=== PATIENT | female | born 1985 | race Caucasian/White ===

== ENCOUNTER 2018-03-15 15:47 | Emergency (ER) | payer SELFPAY ==
[2018-03-15] MEDS ORDERED: Ondansetron 4 MG/2 ML SDV IVPUSH ONE (16:10)
[2018-03-15] MEDS ORDERED: Sodium Chloride 0.9% 10 ML Syringe FLUSH PRN (16:10)
[2018-03-15] MEDS ORDERED: HYDROmorphone 0.5 MG/0.5 ML SYRINGE IVPUSH ONE (16:11)
[2018-03-15] MEDS ORDERED: Ketorolac 30 MG/ML SDV IVPUSH ONE (16:11)
[2018-03-15] MEDS ORDERED: Sodium Chloride 0.9% 1,000 ML IV SCH (16:15)
--- NOTE | 2018-03-15 18:51 | EDM.PDOC ---
ED HPI GENERAL MEDICAL PROBLEM - General Chief Complaint: Flank Pain Stated Complaint: FLANK PAIN Time Seen by Provider: 03/15/18 15:55 Source of Information: Reports: Patient History Limitations: Reports: No Limitations - History of Present Illness INITIAL COMMENTS - FREE TEXT/NARRATIVE: The patient presents with right low back and flank pain. She has a history of kidney stones but she says this feels a little different. She has some darker urine but no frequency or dysuria. She has no fever or chills. She did not hurt her back in any way. She has no fever, chills, cough, chest pain, abdominal pain, nausea or vomiting. This has been going on for a few days. She has no pain that radiates down her legs. Onset: Gradual Duration: Day(s): Location: Reports: Back (Right lower) Quality: Reports: Sharp Severity: Moderate Improves with: Reports: None Worsens with: Reports: None Associated Symptoms: Denies: Chest Pain, Fever/Chills, Headaches, Nausea/ Vomiting, Shortness of Breath Right Flank Pain Score (Numeric/FACES): 7 - Related Data Allergies Allergy/AdvReac Type Severity Reaction Status Date / Time No Known Allergies Allergy Verified 03/15/18 15:55 Home Meds: Home Meds Cyclobenzaprine [Flexeril] 10 mg PO TID PRN #20 tab 03/15/18 [Rx] Hydrocodone/Acetaminophen [Hydrocodon-Acetaminophen 5-325] 1 - 2 each PO Q6HR PRN #20 tablet 03/15/18 [Rx] Past Medical History Genitourinary History: Reports: Renal Calculus, UTI, Recurrent Neurological History: Reports: Migraines - Past Surgical History Female Surgical History: Reports: Tubal Ligation Social & Family History - Tobacco Use Smoking Status *Q: Never Smoker - Caffeine Use Caffeine Use: Reports: Tea - Recreational Drug Use Recreational Drug Use: No ED ROS GENERAL - Review of Systems Review Of Systems: See Below Constitutional: Reports: No Symptoms HEENT: Reports: No Symptoms Respiratory: Reports: No Symptoms Cardiovascular: Reports: No Symptoms Endocrine: Reports: No Symptoms GI/Abdominal: Reports: No Symptoms : Reports: No Symptoms Musculoskeletal: Reports: Back Pain (Right lower ) ED EXAM,LOWER BACK PAIN/INJURY - Physical Exam Exam: See Below Exam Limited By: No Limitations General Appearance: Alert, No Apparent Distress Ears: Normal External Exam Nose: Normal Inspection Head: Atraumatic, Normocephalic Neck: Normal Inspection Respiratory/Chest: No Respiratory Distress, Lungs Clear, Normal Breath Sounds Cardiovascular: Regular Rate, Rhythm, No Edema, No Murmur GI/Abdominal: Soft, Non-Tender, No Organomegaly, No Mass Back Exam: Other (Mild pain upon palpatoin to the right lower back) Extremities: Normal Inspection Neurological: Alert, No Motor/Sensory Deficits, Oriented x 3 Course - Vital Signs Last Recorded V/S: Last Vital Signs Temp 98.2 F 03/15/18 15:56 Pulse 87 03/15/18 15:56 Resp 20 03/15/18 15:56 BP 130/73 03/15/18 15:56 Pulse Ox 99 03/15/18 15:56 - Orders/Labs/Meds Orders: Active Orders 24 hr Category Date Time Status Peripheral IV Care [RC] . DIRECTED Care 03/15/18 16:11 Active Abdomen Pelvis wo Cont [CT] Stat Exams 03/15/18 16:10 Taken CULTURE URINE [RM] Stat Lab 03/15/18 18:39 Ordered Sodium Chloride 0.9% [Normal Saline] 1,000 ml Med 03/15/18 16:15 Active IV ASDIRECTED Sodium Chloride 0.9% [Saline Flush] Med 03/15/18 16:10 Active 10 ml FLUSH ASDIRECTED PRN ED Antiemetic Medication Reflex [OM.PC] Stat Oth 03/15/18 16:10 Ordered Peripheral IV Insertion Adult [OM.PC] Stat Oth 03/15/18 16:10 Ordered Medication Orders Sodium Chloride (Normal Saline) 1,000 mls @ 125 mls/hr IV ASDIRECTED ANNALISE Last Admin: 03/15/18 16:19 Dose: 125 mls/hr Sodium Chloride (Saline Flush) 10 ml FLUSH ASDIRECTED PRN PRN Reason: Keep Vein Open Last Admin: 03/15/18 16:21 Dose: 10 ml Labs: Laboratory Tests 03/15/18 03/15/18 03/15/18 Range/Units 16:00 16:17 16:17 WBC 10.52 H (3.98-10.04) K/mm3 RBC 4.54 (3.98-5.22) M/mm3 Hgb 11.8 (11.2-15.7) gm/L Hct 35.4 (34.1-44.9) % MCV 78.0 L (79.4-94.8) fl MCH 26.0 (25.6-32.2) pg MCHC 33.3 (32.2-35.5) g/dl RDW Std Deviation 38.1 (36.4-46.3) fL Plt Count 302 (182-369) K/mm3 MPV 9.6 (9.4-12.3) fl Neut % (Auto) 63.0 (34.0-71.1) % Lymph % (Auto) 27.4 (19.3-51.7) % [place] % (Auto) 6.7 (4.7-12.5) % Eos % (Auto) 2.1 (0.7-5.8) Baso % (Auto) 0.2 (0.1-1.2) % Neut # (Auto) 6.64 H (1.56-6.13) K/mm3 Lymph # (Auto) 2.88 (1.18-3.74) K/mm3 [place] # (Auto) 0.70 H (0.24-0.36) K/mm3 Eos # (Auto) 0.22 (0.04-0.36) K/mm3 Baso # (Auto) 0.02 (0.01-0.08) K/mm3 Sodium 139 (136-145) mEq/L Potassium 3.9 (3.5-5.1) mEq/L Chloride 103 (98-107) mEq/L Carbon Dioxide 27 (21-32) mEq/L Anion Gap 12.9 (5-15) BUN 10 (7-18) mg/dL Creatinine 0.7 (0.55-1.02) mg/dL Est Cr Clr Drug Dosing 102.86 mL/min Estimated GFR (MDRD) > 60 (>60) mL/min BUN/Creatinine Ratio 14.3 (14-18) Glucose 81 (74-106) mg/dL Calcium 8.8 (8.5-10.1) mg/dL Total Bilirubin 0.5 (0.2-1.0) mg/dL AST 20 (15-37) U/L ALT 27 (14-59) U/L Alkaline Phosphatase 68 (46-116) U/L Total Protein 7.5 (6.4-8.2) g/dl Albumin 3.7 (3.4-5.0) g/dl Globulin 3.8 gm/dL Albumin/Globulin Ratio 1.0 (1-2) Lipase 149 (73-393) U/L HCG, Qual (NEGATIVE) Urine Color Yellow (Yellow) Urine Appearance Clear (Clear) Urine pH 6.0 (5.0-8.0) Ur Specific Marshall 1.020 (1.005-1.030) Urine Protein Negative (Negative) Urine Glucose (UA) Negative (Negative) Urine Ketones Negative (Negative) Urine Occult Blood Negative (Negative) Urine Nitrite Negative (Negative) Urine Bilirubin Negative (Negative) Urine Urobilinogen 0.2 (0.2-1.0) Ur Leukocyte Esterase Trace H (Negative) Urine RBC 0-5 (0-5) /hpf Urine WBC 0-5 (0-5) /hpf Ur Epithelial Cells 0-5 (0-5) /hpf Urine Bacteria Moderate H (FEW) /hpf Urine Mucus Not seen (FEW) /hpf 03/15/18 Range/Units 16:17 WBC (3.98-10.04) K/mm3 RBC (3.98-5.22) M/mm3 Hgb (11.2-15.7) gm/L Hct (34.1-44.9) % MCV (79.4-94.8) fl MCH (25.6-32.2) pg MCHC (32.2-35.5) g/dl RDW Std Deviation (36.4-46.3) fL Plt Count (182-369) K/mm3 MPV (9.4-12.3) fl Neut % (Auto) (34.0-71.1) % Lymph % (Auto) (19.3-51.7) % [place] % (Auto) (4.7-12.5) % Eos % (Auto) (0.7-5.8) Baso % (Auto) (0.1-1.2) % Neut # (Auto) (1.56-6.13) K/mm3 Lymph # (Auto) (1.18-3.74) K/mm3 [place] # (Auto) (0.24-0.36) K/mm3 Eos # (Auto) (0.04-0.36) K/mm3 Baso # (Auto) (0.01-0.08) K/mm3 Sodium (136-145) mEq/L Potassium (3.5-5.1) mEq/L Chloride (98-107) mEq/L Carbon Dioxide (21-32) mEq/L Anion Gap (5-15) BUN (7-18) mg/dL Creatinine (0.55-1.02) mg/dL Est Cr Clr Drug Dosing mL/min Estimated GFR (MDRD) (>60) mL/min BUN/Creatinine Ratio (14-18) Glucose (74-106) mg/dL Calcium (8.5-10.1) mg/dL Total Bilirubin (0.2-1.0) mg/dL AST (15-37) U/L ALT (14-59) U/L Alkaline Phosphatase (46-116) U/L Total Protein (6.4-8.2) g/dl Albumin (3.4-5.0) g/dl Globulin gm/dL Albumin/Globulin Ratio (1-2) Lipase (73-393) U/L HCG, Qual Negative (NEGATIVE) Urine Color (Yellow) Urine Appearance (Clear) Urine pH (5.0-8.0) Ur Specific Marshall (1.005-1.030) Urine Protein (Negative) Urine Glucose (UA) (Negative) Urine Ketones (Negative) Urine Occult Blood (Negative) Urine Nitrite (Negative) Urine Bilirubin (Negative) Urine Urobilinogen (0.2-1.0) Ur Leukocyte Esterase (Negative) Urine RBC (0-5) /hpf Urine WBC (0-5) /hpf Ur Epithelial Cells (0-5) /hpf Urine Bacteria (FEW) /hpf Urine Mucus (FEW) /hpf Meds: Medications Generic Name Dose Route Start Last Admin Trade Name Freq PRN Reason Stop Dose Admin Sodium Chloride 1,000 mls @ 125 mls/hr 03/15/18 16:15 03/15/18 16:19 Normal Saline IV 125 mls/hr ASDIRECTED ANNALISE Administration Sodium Chloride 10 ml 03/15/18 16:10 03/15/18 16:21 Saline Flush FLUSH 10 ml ASDIRECTED PRN Administration Keep Vein Open Discontinued Medications Generic Name Dose Route Start Last Admin Trade Name Freq PRN Reason Stop Dose Admin Hydromorphone HCl 0.5 mg 03/15/18 16:11 03/15/18 16:21 Dilaudid IVPUSH 03/15/18 16:12 0.5 mg ONETIME ONE Administration Ketorolac Tromethamine 30 mg 03/15/18 16:11 03/15/18 16:20 Toradol IVPUSH 03/15/18 16:12 30 mg ONETIME ONE Administration Ondansetron HCl 4 mg 03/15/18 16:10 03/15/18 16:19 Zofran IVPUSH 03/15/18 16:11 4 mg ONETIME ONE Administration - Re-Assessments/Exams Free Text/Narrative Re-Assessment/Exam: 03/15/18 18:44 I ordered an IV NS, labs, UA, CT of her abdomen and pelvis, zofran 4mg IV, dilaudid 0.5mg IV and toradol 30mg IV. Her WBC was near normal at 10.52. Her CMP looks good. Her UA had slight leukocyte esterase and there was some bacteria but no WBCs. I will do a culture. Her CT shows mile hepatosplenomegaly but no kidney stones. I am not sure why she has enlarged liver and spleen. She has not been ill recently. I will have her follow up with one of our providers for follow up. I feel this is muskuloskeletal pain. I will get her on some flexeril and hydrocodone. I will discharge her home. Departure - Departure Time of Disposition: 18:55 Disposition: Home, Self-Care 01 Condition: Good Clinical Impression: Hepatosplenomegaly Right low back pain Qualifiers: Chronicity: acute Sciatica presence: without sciatica Qualified Code(s): M54.5 - Low back pain - Discharge Information *PRESCRIPTION DRUG MONITORING PROGRAM REVIEWED*: No *COPY OF PRESCRIPTION DRUG MONITORING REPORT IN PATIENT BHARATHI: No Prescriptions: Hydrocodone/Acetaminophen [Hydrocodon-Acetaminophen 5-325] 1 - 2 each PO Q6HR PRN #20 tablet PRN Reason: Pain Cyclobenzaprine [Flexeril] 10 mg PO TID PRN #20 tab PRN Reason: Pain Referrals: PCP,None [Primary Care Provider] - Natali Corbett PA-C [Physician Corporate Representative] - 1 Week Forms: ED Department Discharge, ED Return to Work/School Form Additional Instructions: Take motrin or aleve for pain. You may also take flexeril or hydrocodone for pain. Drink plenty of fluids. Your liver and spleen were mildly enlarged please follow up with Natali Corbett to have that reevaluated. Please return if you are worse. - My Orders Last 24 Hours: My Active Orders 03/15/18 16:10 Abdomen Pelvis wo Cont [CT] Stat Sodium Chloride 0.9% [Saline Flush] 10 ml FLUSH ASDIRECTED PRN ED Antiemetic Medication Reflex [OM.PC] Stat Peripheral IV Insertion Adult [OM.PC] Stat 03/15/18 16:11 Peripheral IV Care [RC] . DIRECTED 03/15/18 16:15 Sodium Chloride 0.9% [Normal Saline] 1,000 ml IV ASDIRECTED 03/15/18 18:39 CULTURE URINE [RM] Stat - Assessment/Plan Last 24 Hours: My Active Orders 03/15/18 16:10 Abdomen Pelvis wo Cont [CT] Stat Sodium Chloride 0.9% [Saline Flush] 10 ml FLUSH ASDIRECTED PRN ED Antiemetic Medication Reflex [OM.PC] Stat Peripheral IV Insertion Adult [OM.PC] Stat 03/15/18 16:11 Peripheral IV Care [RC] . DIRECTED 03/15/18 16:15 Sodium Chloride 0.9% [Normal Saline] 1,000 ml IV ASDIRECTED 03/15/18 18:39 CULTURE URINE [RM] Stat
--- NOTE | 2018-03-17 07:13 | CT ---
CT abdomen and pelvis Technique: Multiple axial sections were obtained from above the dome of the diaphragm inferiorly through the pubic symphysis. Intravenous and oral contrast was not utilized. Study has been performed as a ureteral stone protocol. Findings: No abnormal calcifications are seen within the kidneys. No ureteral dilatation or ureteral stone is seen. No bladder calculi are identified. Appendix is not visualized with certainty. No bowel dilatation is seen. Spleen measures at the upper limits of normal at 13.7 cm. Visualized lung bases are clear. Noncontrast appearance of the liver appears within normal limits. Adrenal glands show no nodule. Pancreas is within normal limits. Gallbladder contains no calcified gallstones. Aorta shows no aneurysmal dilatation. No retroperitoneal adenopathy or mesenteric abnormalities are seen. Bone window settings were reviewed showing slight scattered degenerative change. Small fat-containing umbilical hernia is noted. Impression: 1. No renal calculi, ureteral dilatation or ureteral stone is seen. 2. Spleen size at the upper limits of normal at 13.7 cm. 3. Other incidental findings as noted above. Nothing acute is appreciated. Diagnostic code #2 I agree with preliminary report from [facility], finalized on 03/15/18, 6:54 PM Central Time
== END 2018-03-15 19:06 | disposition home or self-care (01) ==
LOC: JD.ED 15:47
DX: M54.5 Low back pain (principal); R16.2 Hepatomegaly with splenomegaly, not elsewhere classified; K04.7 Periapical abscess without sinus
CPT/HCPCS: 36415; 74176; 80053; 81001; 83690; 84703; 85025; 87086; 87088; 87186; 96361; 96374; 96375; 99284; J1170; J1885; J2405; J7040; J7050

== ENCOUNTER 2019-06-09 09:20 | Emergency (ER) | payer BC, OTHER ==
[2019-06-09] MEDS ORDERED: Ondansetron 4 MG Tab.DIS PO ONE (11:04)
[2019-06-09] MEDS ORDERED: Acetaminophen/oxyCODONE 325-5 MG Tab PO ONE (11:04)
--- NOTE | 2019-06-09 11:33 | EDM.PDOC ---
ED HPI GENERAL MEDICAL PROBLEM - General Chief Complaint: Head Injury Stated Complaint: FELL ON ICE/HEAD AND BODY INJURIES Time Seen by Provider: 06/09/19 10:51 Source of Information: Reports: Patient, Family History Limitations: Reports: No Limitations - History of Present Illness INITIAL COMMENTS - FREE TEXT/NARRATIVE: The patient presents with a headache, neck pain, low back pain, tailbone pain and right hip pain after falling on ice yesterday. She was at work and moving snow. She did not see the ice under the snow and she slipped and fell. She hit her head and landed on her back. She does not think she had any LOC. It did take her a few minutes to get up. She has felt like she is "drunk." She also has nausea and a bad headache. She has midline cervical spine pain. She has no numbness or weakness. She can walk but she is sore in the right hip and tailbone area. She has no chest pain, shortness of breath, abdominal pain or vomiting. Onset: Sudden Duration: Day(s): (Yesterday) Location: Reports: Head, Neck, Back (lower), Lower Extremity, Right (hip) Quality: Reports: Sharp Severity: Severe Improves with: Reports: Immobilization Worsens with: Reports: Movement Context: Reports: Trauma (Slipped and fell on the ice) Associated Symptoms: Reports: Headaches, Nausea/Vomiting. Denies: Chest Pain, Cough, Fever/Chills, Shortness of Breath Treatments COTTON PICKING MACHINE OPERATOR: Reports: Other (see below) Other Treatments COTTON PICKING MACHINE OPERATOR: tylenol yesterday Generalized Pain Score (Numeric/FACES): 8 - Related Data Allergies Allergy/AdvReac Type Severity Reaction Status Date / Time latex Allergy Other Verified 06/09/19 09:37 Home Meds: Home Meds Ondansetron [Zofran ODT] 4 mg PO Q6H PRN #20 tab.dis 06/09/19 [Rx] oxyCODONE HCl/Acetaminophen [Percocet 5-325 mg Tablet] 1 - 2 each PO Q6HR PRN # 15 tablet 06/09/19 [Rx] Past Medical History HEENT History: Reports: Impaired Vision Respiratory History: Reports: Asthma Genitourinary History: Reports: Renal Calculus, UTI, Recurrent PERSONNEL ASSOCIATE History: Reports: Neurological History: Reports: Concussion, Migraines Psychiatric History: Reports: Anxiety Hematologic History: Reports: Anemia - Past Surgical History Female Surgical History: Reports: Tubal Ligation, Other (See Below) Other Female Surgeries/Procedures: uterine ablation Endocrine Surgical History: Reports: Other (See Below) Other Endocrine Surgeries/Procedures: benign hemangioma Social & Family History - Family History Family Medical History: Noncontributory - Tobacco Use Smoking Status *Q: Never Smoker - Caffeine Use Caffeine Use: Reports: Tea - Recreational Drug Use Recreational Drug Use: No ED ROS GENERAL - Review of Systems Review Of Systems: See Below Constitutional: Reports: No Symptoms HEENT: Reports: No Symptoms Respiratory: Reports: No Symptoms Cardiovascular: Reports: No Symptoms Endocrine: Reports: No Symptoms GI/Abdominal: Reports: Nausea. Denies: Abdominal Pain, Vomiting : Reports: No Symptoms Musculoskeletal: Reports: Back Pain (lower), Other (Right hip pain) Neurological: Reports: Headache. Denies: Numbness, Weakness ED EXAM, HEAD INJURY - Physical Exam Exam: See Below Exam Limited By: No Limitations General Appearance: Alert, No Apparent Distress Head: Other (Pain upon palpation to the occipital region) Eyes: Bilateral Eye: EOMI, PERRL Ears: Normal External Exam Nose: Normal Inspection Neck: Tender Midline Respiratory: No Respiratory Distress, Lungs Clear, Normal Breath Sounds Cardiovascular: Regular Rate, Rhythm, No Edema, No Murmur GI/Abdominal Exam: Soft, Non-Tender, No Organomegaly, No Mass Back Exam: Other (Pain upon palpation to the lumbar spine) Extremities: Other (Pain upon palpation to the right hip with good sensation and pulses distally) Neurologic: No Motor/Sensory Deficits, Alert, Normal Mood/Affect, Oriented x 3 Course - Vital Signs Last Recorded V/S: Last Vital Signs Temp 96.4 F 06/09/19 09:38 Pulse 90 06/09/19 09:38 Resp 16 06/09/19 09:38 BP 129/80 06/09/19 09:38 Pulse Ox 99 06/09/19 09:38 - Orders/Labs/Meds Orders: Active Orders 24 hr Category Date Time Status Cervical Spine wo Cont [CT] Stat Exams 06/09/19 11:05 Taken Head wo Cont [CT] Stat Exams 06/09/19 11:04 Taken Hip Min 2V or 3V w Pelvis Rt [CR] Stat Exams 06/09/19 11:05 Taken Lumbar Spine 2 or 3V [CR] Stat Exams 06/09/19 11:05 Taken Meds: Medications Discontinued Medications Generic Name Dose Route Start Last Admin Trade Name Christina PRN Reason Stop Dose Admin Ondansetron HCl 4 mg 06/09/19 11:04 06/09/19 11:37 Zofran Odt PO 06/09/19 11:05 4 mg ONETIME ONE Administration Oxycodone/Acetaminophen 2 tab 06/09/19 11:04 06/09/19 11:36 Percocet 325-5 Mg PO 06/09/19 11:05 2 tab ONETIME ONE Administration - Re-Assessments/Exams Free Text/Narrative Re-Assessment/Exam: 06/09/19 11:34 I ordered zofran 4mg PO, percocet 5mg/325mg X 2, CT of her head, cervical spine , and x-ray of her lumbar spine and right hip with pelvis. 06/09/19 12:[address] of her head and cervical spine show no acute injuries. The x-ray of her lumbar spine, hip and pelvis are all negative. I will discharge her home. Departure - Departure Time of Disposition: 12:30 Disposition: Home, Self-Care 01 Condition: Good Clinical Impression: Fall Qualifiers: Encounter type: initial encounter Qualified Code(s): W19.XXXA - Unspecified fall, initial encounter Concussion Qualifiers: Encounter type: initial encounter Loss of consciousness presence/duration: without LOC Qualified Code(s): S06.0X0A - Concussion without loss of consciousness, initial encounter Head injury Qualifiers: Encounter type: initial encounter Qualified Code(s): S09.90XA - Unspecified injury of head, initial encounter Cervical strain Qualifiers: Encounter type: initial encounter Qualified Code(s): S16.1XXA - Strain of muscle, fascia and tendon at neck level, initial encounter Lumbar strain Qualifiers: Encounter type: initial encounter Qualified Code(s): S39.012A - Strain of muscle, fascia and tendon of lower back, initial encounter Coccyx contusion Qualifiers: Encounter type: initial encounter Qualified Code(s): S30.0XXA - Contusion of lower back and pelvis, initial encounter Contusion of right hip Qualifiers: Encounter type: initial encounter Qualified Code(s): S70.01XA - Contusion of right hip, initial encounter - Discharge Information *PRESCRIPTION DRUG MONITORING PROGRAM REVIEWED*: No *COPY OF PRESCRIPTION DRUG MONITORING REPORT IN PATIENT BHARATHI: No Prescriptions: oxyCODONE HCl/Acetaminophen [Percocet 5-325 mg Tablet] 1 - 2 each PO Q6HR PRN # 15 tablet PRN Reason: Pain Ondansetron [Zofran ODT] 4 mg PO Q6H PRN #20 tab.dis PRN Reason: Nausea\\vomiting Referrals: PCP,None [Primary Care Provider] - Maria Luisa Pineda PA-C [Physician Payroll Specialist] - 1 Week Forms: ED Department Discharge, ED Return to Work/School Form Additional Instructions: Ice the areas that hurt for 15 minutes 3 times per day for 2 days. Take tylenol or motrin for pain. If that does not help, try the percocet. Please return if you are worse. Take the zofran every 6 hours as needed for nausea and vomiting. Sepsis Event Note - Evaluation Sepsis Screening Result: No Definite Risk - Focused Exam Vital Signs: Vital Signs Temp Pulse Resp BP Pulse Ox 06/09/19 09:38 96.4 F 90 16 129/80 99 Date Exam was Performed: 06/09/19 Time Exam was Performed: 12:25 - My Orders Last 24 Hours: My Active Orders 06/09/19 11:04 Head wo Cont [CT] Stat 06/09/19 11:05 Cervical Spine wo Cont [CT] Stat Hip Min 2V or 3V w Pelvis Rt [CR] Stat Lumbar Spine 2 or 3V [CR] Stat - Assessment/Plan Last 24 Hours: My Active Orders 06/09/19 11:04 Head wo Cont [CT] Stat 06/09/19 11:05 Cervical Spine wo Cont [CT] Stat Hip Min 2V or 3V w Pelvis Rt [CR] Stat Lumbar Spine 2 or 3V [CR] Stat
--- NOTE | 2019-06-09 12:26 | CT ---
CT cervical spine Technique: Multiple axial sections were obtained from above C1 inferiorly to the top of T2. Reconstructed sagittal and coronal images were reviewed. Comparison: Previous CT cervical spine study of 06/06/18. Findings: Mild disc space narrowing is noted at C5-C6 with anterior osteophytes and mild posterior osteophytes. Other disc spaces and vertebral body heights are maintained. No bony central or bony neural foraminal stenosis is seen. No fracture is appreciated. No abnormal subluxation is seen. Impression: 1. Slight degenerative change at C5-C6. 2. Nothing acute is appreciated on CT study of the cervical spine. 3. No significant change is seen from prior cervical spine study. Diagnostic code #2 This report was dictated in [place] Standard Time
--- NOTE | 2019-06-09 12:40 | CT ---
Head CT Technique: Multiple axial sections were obtained through the brain. Intravenous contrast was not utilized. Comparison: Prior head CT study of 06/06/18. Findings: Ventricles along with basal cisterns and sulci over the convexities are within normal limits for the patient's age. No abnormal parenchymal densities are seen. No evidence of intracranial hemorrhage. No midline shift or mass effect is seen. Bone window settings were reviewed. Visualized paranasal sinuses show nothing acute. Mastoid sinuses are clear. No acute calvarial abnormality is appreciated. Impression: 1. Nothing acute is appreciated on noncontrast head CT exam. Diagnostic code #1 This report was dictated in [place] Standard Time
--- NOTE | 2019-06-09 14:10 | CR ---
Lumbar spine: AP, lateral and cone down lateral view centered to the lumbosacral junction were obtained. Comparison: Previous lumbar spine study of 06/06/18. Findings: Mild disc space narrowing is seen at L1-L2 with mild anterior osteophytes. Mild anterior osteophytes are noted at T12-L1 with minimal disc space narrowing. Other disc spaces are maintained. Vertebral body heights maintained. Pedicles are intact. No subluxation or fracture seen. Impression: 1. Minimal degenerative change. 2. Nothing acute is seen on three-view lumbar spine study. No change is seen from previous exam. Diagnostic code #2 This report was dictated in [place] Standard Time
--- NOTE | 2019-06-09 14:10 | CR ---
Pelvis and right hip: AP view of the pelvis was obtained as well as AP and frog-leg lateral views of the right hip. Comparison: No prior pelvis or hip exam. Joint spaces within both hips are maintained. Sacroiliac joints appear within normal limits. No fracture or other abnormality is appreciated. Impression: 1. No abnormality is identified on AP pelvis or on two-view right hip exam. Diagnostic code #1 This report was dictated in [place] Standard Time
== END 2019-06-09 13:08 | disposition home or self-care (01) ==
LOC: JD.ED 09:20
DX: S06.0X0A Concussion without loss of consciousness, initial encounter (principal); S16.1XXA Strain of muscle, fascia and tendon at neck level, initial encounter; S39.012A Strain of muscle, fascia and tendon of lower back, initial encounter; S30.0XXA Contusion of lower back and pelvis, initial encounter; S70.01XA Contusion of right hip, initial encounter; J45.909 Unspecified asthma, uncomplicated; Z91.040 Latex allergy status; W00.0XXA Fall on same level due to ice and snow, initial encounter
CPT/HCPCS: 70450; 72100; 72125; 73502; 99284; A9270; 99282